=== PATIENT | male | born 1995 ===

== ENCOUNTER 2024-10-23 18:21 | Emergency (ER) | payer OTHER, SELFPAY ==
[2024-10-23 18:49] VITALS: BP 156/85; PULSE 90; RESP 17; TEMP 36.3; O2SAT 99; BMI 41.4
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
--- OUTSIDE RECORDS SUMMARY | 2024-10-23 20:07 | XMS_ITS | Clinical Summary ---
Author Organization [facility] [address] Address [address] [place] [address] Phone Care Team Providers Care Lubrication Equipment Servicer Name Role Phone Odalis Purdy Primary Care Provider [phone] Allergies No known active allergies Medications No known medications Active Problems No known active problems Social History Tobacco Use Types Packs/Day Years Used Date Smoking Tobacco: Some Days Alcohol Use Standard Drinks/Week Comments Yes 0 (1 standard drink = 0.6 oz pur e alcohol) Housing Instability Answer Date Recorde d Are you worried that in the next 2 months you may not have stable housing? No 06/09/2024 Financial Risk Answer Date Recorded How hard is it for you to pa y for the very basics like food, housing, medical care, and air conditioning / heating? Not very hard 06/09/2024 Food Risk Answer Date Recorded Within the past 12 months we worried whether our food would run out before we got money to buy more. Never true 06/09/2024 Within the past 12 months th e food we bought just didn't last and we didn't have money to get more. Never true 06/09/2024 Living Situation Answer Date Recorded What is your living situation? 0 06/09/2024 Sex and Gender Information Value Date Recorded Sex Assigned at Not on file Legal Sex Male 9:10 PM EST Gender Identity Not on file Sexual Orientation Not on file Obstetrics History Last Filed Vital Signs Vital Sign Reading Time Taken Comments Blood Pressure 132/76 06/10/2024 9:14 AM EDT manual blood pressure Pulse 98 06/10/2024 9:50 AM EDT Temperature 36.7 C (98.1 F) 06/10/2024 9:14 AM EDT Respiratory Rate - - Oxygen Saturation 98% 06/10/2024 9:1 4 AM EDT Inhaled Oxygen Concentration - - Weight 142 kg (312 lb 12.8 oz) 06/10/2024 9:14 AM EDT Height 180.3 cm (5' 11 ) 06/10/2024 9:1 4 AM EDT Body Mass Index 43.63 06/10/2024 9:14 AM EDT Plan of Treatment Health Maintenance Due Date Last Done Comments DTaP,Tdap,and Td Vaccines (1 - Tdap) 02/18/2016 Hepatitis B Vaccines (1 of 3 - 19+ 3-dose series) 02/18/2016 Pneumococcal Vaccine: Pediat rics (0 to 5 Years) and At-Risk Patients (6 to 49 Years) (1 of 2 - PCV) 02/18/2016 COVID-19 Vaccine (2023-2 5 season) 2023 Influenza Vaccine (#1) 2024 Social Influencers of Health Screening 06/09/2025 06/09/2024 Cholesterol Screening (Lipid Panel) 06/14/2029 06/14/2024 Depression Screening Completed 06/10/2024 HIV Screening Completed 06/16/2024 Hepatitis C Screening Completed 06/16/2024 HIB Vaccines Aged Out No longer eligi ble based on patient's age to complete this topic HPV Vaccines Aged Out No longer eligi ble based on patient's age to complete this topic Hepatitis A Vaccines Aged Out No long er eligible based on patient's age to complete this topic IPV Vaccines Aged Out No longer eligi ble based on patient's age to complete this topic MMR Vaccines Aged Out No longer eligi ble based on patient's age to complete this topic Meningococcal ACWY Vaccine Aged Out N o longer eligible based on patient's age to complete this topic Meningococcal B Vaccine Aged Out No l onger eligible based on patient's age to complete this topic RSV Immunization Patients Un matt 20 months Aged Out No longer eligible b ased on patient's age to complete this topic Varicella Vaccines Aged Out No longer eligible based on patient's age to complete this topic Procedures Procedure Name Priority Date/Time Associated Diagnosis Comments HEPATITIS C ANTIBODY Routine 06/16/2024 11:11 AM EDT Screening for STDs (sexually transmitted diseases) HIV 1, 2 ANTIBODY, P24 ANTIGEN WITH REFLEX TO DIFFERENTIATION Routine 06/16/2024 11:11 AM EDT Screening for STDs (sexually transmitted diseases) LIPID PANEL Routine 06/14/2024 4:35 PM EDT Screening for cholesterol level from Last 3 Months or Most Recently Relevant to Health Maintenance Results * Hepatitis C antibody (06/16/2024 11:11 AM EDT) Pathologist [facility] Hepatitis C Antibody Negative Negative LAB CHEMISTRY METHOD 06/16/2024 3:06 PM EDT [facility] Blood Venous blood specimen / Unknown Venipuncture / Unknown 06/16/2024 11:11 AM EDT 06/16/2024 11:11 AM EDT Odalis SAENZ LAB BLOOD ORDERABLES Leann l Result [facility] [address] [place] [address], [place] [phone] * HIV 1,2 antibody, p24 antigen with reflex to differentiation (06/16/2024 11:11 AM EDT) [facility] HIV Combo AB/AG Negative Negative LAB CHEMISTRY METHOD 06/16/2024 3:06 PM EDT [facility] Blood Venous blood specimen / Unknown Venipuncture / Unknown 06/16/2024 11:11 AM EDT 06/16/2024 11:11 AM EDT Narrative [facility] - 06/16/2024 3:06 PM EDT Nonreactive result does not rule out HIV infection. Odalis SAENZ LAB BLOOD ORDERABLES Leann l Result [facility] [address] [place] [address], [place] [phone] * (ABNORMAL) Lipid panel (06/14/2024 4:35 PM EDT) Cholesterol 211(H) 0 - 200 mg/dL LAB CHEMISTRY METHOD 06/14/2024 7:57 PM EDT [facility] Triglycerides 130 <150 mg/dL LAB CHEMISTRY METHOD 06/14/2024 7:57 PM EDT [facility] HDL 32 32 - 70 mg/dL LAB CHEMISTRY METHOD 06/14/2024 7:57 PM EDT [facility] LDL Calculated 153(H) 50 - 130 mg/dL LAB CHEMISTRY METHOD 06/14/2024 7:57 PM EDT [facility] VLDL Cholesterol Augustus 26 mg/dL LAB CHEMISTRY METHOD 06/14/2024 7:57 PM EDT [facility] Comment:No established refer ence range. Blood Venous blood specimen / Unknown Venipuncture / Unknown 06/14/2024 4:35 PM EDT 06/14/2024 4:36 PM EDT dOalis SAENZ LAB BLOOD ORDERABLES Leann whitfield Result [facility] [address] [place] [address], from Last 3 Months or Most Recently Relevant to Health Maintenance Insurance [facility] Care Teams Lubrication Equipment Servicer Relationship Specialty Start Date End Date Odalis Purdy PA [address] [place] [address] PCP - General Family Medicine 06/10/24
--- OUTSIDE RECORDS SUMMARY | 2024-10-23 20:07 | XMS_ITS ---
Author Name [facility] Organization Unknown Results Test Name/Text Value Interpretation Date Range Source HIV 1+2 Ab+HIV1 p24 Ag SerPl Ql IA Negative Normal 06/16/2024 - [facility] HCV Ab SerPl Ql IA Negative Normal 06/16/2024 - [facility] RPR Ser Ql Nonreactive Normal 06/16/2024 - [facility] Testosterone.free+ WB SerPl-mCnc 117.9 ng/dL Normal 06/23/2024 [facility] Testost SerPl-mCnc 435.0 ng/dL Normal 06/23/2024 250 - 11 00 [facility] Testost Free SerPl-mCnc 59.8 pg/mL Normal 06/23/2024 46 - 224 [facility] Albumin SerPl-mCnc 4.3 g/dL Normal 06/23/2024 3.6 - 5.1 [facility] SHBG SerPl-sCnc 32.0 nmol/L Normal 06/23/2024 10 - 50 C [facility] HbA1c MFr Bld 5.4 % Normal 06/15/2024 - 5.7 [facility] Est. average glucose Bld gHb Est-mCnc 108.0 mg/dL Normal 06/15/2024 [facility] VLDLc SerPl Calc-mCnc 26.0 mg/dL Normal 06/14/2024 [facility] HDLc SerPl-mCnc 32.0 mg/dL Normal 06/14/2024 32 - 70 [facility] Cholest SerPl-mCnc 211.0 mg/dL Above high normal 06/14/2024 0 - 200 [facility] Trigl SerPl-mCnc 130.0 mg/dL Normal 06/14/2024 - 150 [facility] LDLc SerPl Calc-mCnc 153.0 mg/dL Above high normal 06/14/2024 50 - 130 [facility] TSH SerPl DL<=0.005 mIU/L-aCnc 2.56 mcIU/mL Normal 06/14/2024 0.45 - 5.33 [facility] Albumin SerPl-mCnc 4.4 g/dL Normal 06/14/2024 3.5 - 5 [facility] Glucose SerPl-mCnc 95.0 mg/dL Normal 06/14/2024 70 - 99 [facility] Potassium SerPl-sCnc 3.9 mmol/L Normal 06/14/2024 3.5 - 5.1 [facility] AST SerPl-cCnc 17.0 unit/L Normal 06/14/2024 5 - 40 [facility] ALT SerPl-cCnc 25.0 unit/L Normal 06/14/2024 7 - 52 [facility] Calcium SerPl-mCnc 9.2 mg/dL Normal 06/14/2024 8.4 - 10.2 [facility] Chloride SerPl-sCnc 101.0 mmol/L Normal 06/14/2024 98 - 107 [facility] eGFRcr SerPlBld CKD-EPI 2020 125.0 mL/min/1.73m2 Normal 06/14/2024 - [facility] Creat SerPl-mCnc 0.78 mg/dL Normal 06/14/2024 0.7 - 1.3 C [facility] BUN SerPl-mCnc 11.0 mg/dL Normal 06/14/2024 9 - 20 [facility] CO2 SerPl-sCnc 27.0 mmol/L Normal 06/14/2024 24 - 32 [facility] Sodium SerPl-sCnc 136.0 mmol/L Normal 06/14/2024 135 - 14 5 [facility] Bilirub SerPl-mCnc 0.9 mg/dL Normal 06/14/2024 0.3 - 1 [facility] ALP SerPl-cCnc 100.0 unit/L Normal 06/14/2024 34 - 104 C [facility] Anion Gap SerPl-sCnc 8.0 Normal 06/14/2024 5 - 14 [facility] Prot SerPl-mCnc 7.5 g/dL Normal 06/14/2024 6.4 - 8.5 [facility] BUN/Creat SerPl 14.1 Normal 06/14/2024 12 - 20 [facility] Hct VFr Bld Auto 44.4 % Normal 06/14/2024 40 - 54 [facility] MCHC RBC Auto-mCnc 34.0 g/dL Normal 06/14/2024 32 - 36 [facility] Neutrophils # Bld Auto 3.16 K/mcL Normal 06/14/2024 1.8 - 7.8 [facility] RBC # Bld Auto 5.28 M/mcL Normal 06/14/2024 4.7 - 6 [facility] Neutrophils/leuk NFr Bld Auto 50.0 % Normal 06/14/2024 44 - 74 [facility] Basophils # Bld Auto <0.03 K/mcL Normal 06/14/2024 0 - 0.2 [facility] Monocytes/leuk NFr Bld Auto 8.4 % Normal 06/14/2024 2 - 12 [facility] Lymphocytes # Bld Auto 2.51 K/mcL Normal 06/14/2024 1 - 3.2 [facility] Platelet # Bld Auto 216.0 K/mcL Normal 06/14/2024 150 - 450 [facility] Lymphocytes/leuk NFr Bld Auto 39.7 % Normal 06/14/2024 20 - 48 [facility] WBC # Bld Auto 6.3 K/mcL Normal 06/14/2024 4 - 10.5 [facility] Hgb Bld-mCnc 15.1 g/dL Normal 06/14/2024 13.5 - 18 [facility] Eosinophil # Bld Auto 0.08 K/mcL Normal 06/14/2024 0 - 0.5 [facility] MCH RBC Qn Auto 28.6 pcg Normal 06/14/2024 25 - 33 [facility] Basophils/leuk NFr Bld Auto 0.3 % Normal 06/14/2024 0 - 2 [facility] MCV RBC Auto 84.1 FL Normal 06/14/2024 78 - 100 [facility] Eosinophil/leuk NFr Bld Auto 1.3 % Normal 06/14/2024 0 - 6 [facility] Monocytes # Bld Auto 0.53 K/mcL Normal 06/14/2024 0 - 0.8 [facility] RDW RBC Auto-Rto 12.7 % Normal 06/14/2024 12.1 - 17.7 [facility] PMV Bld Auto 10.1 FL Normal 06/14/2024 7.4 - 11.4 [facility] History of Medication Use Medication Directions Dispensed Refills Start Date End Date Stat us No known medications No known medications active Problems Problem Status Onset Date Problem Type Date of Resoluti on Source Unspecified abdominal pain active 2023-03-01 ProblemAct [facility] Encounters Encounter Type Encounter Reason Primary Diagnosis Location Date Ambulatory new patient [facility] in other specified circumstances [facility] 06/10/2024 [facility] 03/01/2023 Care Team Organization Name Specialty Phone Email Start Date End Da te [facility] 06/11/2024 [facility]EE [facility] Primary Care 06/10/2024 [facility] 06/10/2024 [facility] Not Found Primary Care 03/29/2023 [facility] Not Found Primary Care 03/29/2023 08/24/2024 [facility] 023 08/24/2024 [facility] 023 03/01/2023
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
[2024-10-23 22:30] VITALS: BP 126/56; PULSE 63; RESP 16; TEMP 36.4; O2SAT 100
[2024-10-23 22:36] VITALS: BP 126/56; PULSE 63; RESP 16; TEMP 36.4; O2SAT 100
== END 2024-10-23 22:37 | disposition home or self-care (01) ==
PROVIDERS: Emergency Provider Emergency Medicine
DX: S16.1XXA Strain of muscle, fascia and tendon at neck level, initial encounter (principal); V43.52XA Car driver injured in collision with other type car in traffic accident, initial encounter; Y93.9 Activity, unspecified; Y92.9 Unspecified place or not applicable; Y99.9 Unspecified external cause status; M54.2 Cervicalgia; R51.9 Headache, unspecified
CPT/HCPCS: 99283; 99284